=== PATIENT | male | born 1945 | race Caucasian/White ===

== ENCOUNTER → 2018-12-25 | Outpatient (CLI) | payer MEDICARE, OTHER | LOC: M.MRI 16:02 | DX: S83.231A Complex tear of medial meniscus, current injury, right knee, initial encounter (principal); S83.271A Complex tear of lateral meniscus, current injury, right knee, initial encounter; M17.11 Unilateral primary osteoarthritis, right knee; M71.21 Synovial cyst of popliteal space [Baker], right knee; M25.461 Effusion, right knee; X58.XXXA Exposure to other specified factors, initial encounter; Y93.89 Activity, other specified; Y92.89 Other specified places as the place of occurrence of the external cause; Y99.8 Other external cause status ==

== ENCOUNTER 2019-02-03 07:38 | Inpatient (IN) | payer MEDICARE, OTHER ==
[2019-01-22 09:16] LABS: URINE BILIRUBIN NEGATIVE (Negative); URINE BLOOD NEGATIVE (Negative); URINE CLARITY CLEAR; URINE COLOR YELLOW; URINE GLUCOSE-RANDOM NEGATIVE (Negative); URINE KETONES NEGATIVE (Negative); URINE LEUKOCYTES-REFLEX NEGATIVE (Negative); URINE NITRITE-REFLEX NEGATIVE (Negative); URINE PROTEIN NEGATIVE (Negative); URINE SPECIFIC GRAVITY >= 1.030 (1.005-1.030); URINE UROBILINOGEN 0.2 E.U./dl (0.2-1.0)
[2019-01-22 09:34] LABS: HEMATOCRIT 48.2 % (42.0-52.0); HEMOGLOBIN 15.9 gm/dL (14.0-18.0); MCH 30.7 pg (26.0-34.0); MCHC 33.1 g/dL (28.0-37.0); MCV 92.9 fL (80.0-100.0); MPV 7.7 fl. (7.2-11.1); RBC 5.19 mil/uL (4.50-6.00); WBC 5.7 thou/uL (4.0-11.0)
[2019-01-22 09:49] LABS: CALCIUM 8.9 mg/dL (8.5-10.1); CREATININE 0.9 mg/dL (0.6-1.3); TOTAL BILIRUBIN 0.5 mg/dL (<0.1-1.0); TOTAL PROTEIN 7.4 g/dL (6.4-8.2)
--- NOTE | 2019-01-22 15:07 | EKG ---
[place] [address] ELECTROCARDIOGRAM REPORT Name: GARDENIA BURTON Room: PRE IN ..#: [id number] Admission: Attend Phys: Paulo Waters Discharge: Date of : 49 Report #: [id number] THIS REPORT FOR: //name// [facility] Test Date: 2019-01-22 Test Time: 09:11:08 Pat Name: GARDENIA BURTON Department: Room: Gender: M [employer] Supervisor: : 1945 Requested By: Julio Mora Order Number: [id number] Reading MD: Rush Arzate Measurements Intervals [place] Rate: 56 P: 52 ME: 197 QRS: 101 QRSD: 102 T: 36 QT: 424 QTc: 410 Interpretive Statements Sinus rhythm Right axis deviation No previous ECG available for comparison Electronically Signed On 01-22-2019 15:07:47 CDT by Rush Arzate [email or web address] <ELECTRONICALLY SIGNED> By: Rush Arzate MD, [facility] 01/22/19 1507 [id number] 0911 Rush Arzate MD, FACC /EPI
[~2019-02-03] VITALS: Ht 182.9 cm; Wt 99.8 kg
--- NOTE | ~2019-02-03 | OP ---
[facility] [address] [place] [address] OPERATIVE REPORT Name: MICHEALGARDENIA KELLOGG Room: 115- ADM IN M.R.#: [id number] Admission: 02/03/19 Attend Phys: Paulo Waters Discharge: Date of : 49 Report #: [id number] THIS REPORT FOR: //name// CC: Marci Bryant DATE OF SERVICE: 02/03/2019 PREOPERATIVE DIAGNOSIS: Right knee osteoarthritis. POSTOPERATIVE DIAGNOSIS: Right knee osteoarthritis. PROCEDURE: Right total knee arthroplasty. ANESTHESIA: General endotracheal. ESTIMATED BLOOD LOSS: 50 mL. SURGEON: Julio Mora II, DO. [employer]: NIKI Sumner. ANTIBIOTICS: Ancef preoperatively. DRAINS: Medium Hemovac. COMPLICATIONS: None. CONDITION: The patient is stable to recovery room. IMPLANTS: Listed in the operative record and progress note. BRIEF HISTORY: The patient was seen in the preoperative area. Preoperative H and P was performed. Site was marked, questions were answered. Risks and benefits were discussed with the patient in detail about surgery. The patient wished to proceed, assuming all risks. DESCRIPTION OF PROCEDURE: The patient was taken to the operative suite and placed supine on the operating table and given appropriate anesthesia. Well-padded tourniquet was applied to the upper thigh, was inflated to 300 mmHg after gravity exsanguination for the duration of procedure. The operative knee was sterilely prepped and draped. Surgery began with a midline incision. This was carried down to subcutaneous tissues. A medial parapatellar arthrotomy was performed and carried down to bone. The patella was then everted and excess soft tissue removed around the femur. The femoral cutting block was then [facility] [address] [place] [address] OPERATIVE REPORT Name: GARDENIA BURTON Room: [address] M.R.#: [id number] Admission: 02/03/19 Attend Phys: Paulo Waters Discharge: Date of : 49 Report #: [id number] applied, checked with drop neha for rotational alignment, pinned in appropriate position, and appropriate cuts were made. A 4-in-1 cutting block was then applied, checked for rotational alignment, pinned in appropriate position and appropriate cuts were made. The tibia was then exposed. Excess meniscus was removed. Retractor was placed along the collateral ligaments. The tibial cutting block was applied, pinned in appropriate position and checked with a drop neha for rotational alignment and slope, and appropriate cut was made. The tibial bone was removed. The tibial base plate was then applied, checked for rotational alignment with the drop neha and pinned in appropriate position. Femur was then applied. Box cut was reamed. This was then trialed with appropriate spacer, which showed excellent fit and fill and excellent stability of the knee through all range of motion. The patella was then reamed in appropriate fashion and sized to appropriate size. Three peg holes were drilled and the knee was then trialed and showed excellent flexion and extension, excellent tracking of the patella within the groove. These trials were removed. The tibia was punched in appropriate fashion. Bone ends were cleaned with Pulsavac irrigation and cement was mixed and applied to final implants. These were then malleted in position and held the knee in extension and compressed to allow the cement to cure. After it cured, excess was removed utilizing [place] and osteotome. The wound was then copiously irrigated and the final spacer was then malleted into position. The tourniquet was deflated. Hemostasis was obtained with electrocautery. Pain cocktail was injected. PRP gel spread in the internal aspects of the knee. Medium Hemovac drain was applied. Capsule was closed with #2 FiberWire and 1-0 Vicryl in [id number] fashion. Skin was closed with 2-0 Vicryl and running 3-0 Monocryl. Dermabond and sterile dressing applied. Scott wrap and PolarCare applied. The patient transported to recovery room in stable condition. Counts were correct throughout the procedure. By: [id number] guadalupe Mora II, DO /nt
[~2019-02-03 07:38] MED LIST: EFFEXOR XR75 MG PO
[2019-02-03 08:30] VITALS: BP 136/76
[2019-02-03 11:30] VITALS: BP 135/72
--- NOTE | 2019-02-03 12:35 | NUR ---
PT ARRIVED ON UNIT @ 1125. ALERT AND ORIENTED X 4. ORIENTED TO ROOM. NICHOLAS WRAP DRESSING RIGHT KNEE-C/D/I. POLAR PACK IN PLACE. HEMOVAC DRAIN RIGHT KNEE. OXYGEN @ 2 L/NC. IVF INFUSING @ 75 MLS/HR. THIGH HIGH TEDS ON LEG LEG. SCDS- FOOT SLEEVES BILAT. CALL LIGHT WITHIN REACH.
[2019-02-03 16:00] VITALS: BP 119/77
--- NOTE | 2019-02-03 17:09 | NUR ---
RECIEVED O.T. ORDER. WILL DEFER TO P.T. AT THIS TIME. PLEASE ORDER FURTHER O.T. SERVICES IF NEEDED.
--- NOTE | 2019-02-03 19:01 | NUR ---
PT ALERT AND ORIENTED X 4. RECEIVED OXYCODONE FOR PAIN CONTROL. IVF INFUSING @ 75 MLS/HR. DENIES NAUSEA. OXYGEN ON @ 2 L/NC. NICHOLAS WRAP ON RIGHT KNEE-C/D/I. POLAR PACK IN USE. THIGH HIGH VERONA HOSE ON LEFT LEG. HEMOVAC DRAIN IN PLACE. SCDS BILAT FOOT IN USE. HOURLY ROUNDS MAINTAINED. CALL LIGHT WITHIN REACH.
[2019-02-04 00:01] VITALS: BP 124/62
[2019-02-04 04:09] VITALS: BP 115/68
[2019-02-04 05:31] LABS: HEMATOCRIT 39.7 % (42.0-52.0)
--- NOTE | 2019-02-04 07:28 | NUR ---
PATIENT HAS SLEPT WELL THROUGHOUT THE NIGHT. VSS ON RA. PAIN WELL CONTROLLED WITH ORAL PAIN MEDICATION AND CHARTED. DRESSING TO RIGHT KNEE IS C/D/I, VERONA HOSE, SCD'S AND POLAR CARE IN PLACE. HEMOVAC IN PLACE WITH MODERATE SANGUINEOUS DRAINAGE. PATIENT [place] WITH [place]IST X 1 [place] [facility] [place] IN LEFT HAND-1/2 NS @ 75ML/HR. PATIENT USING BEDSIDE URINAL DURING THE NIGHT. PATIENT INSTRUCTED TO USE CALL LIGHT WHEN NEEDING ASSISTANCE. HOURLY ROUNDS MADE. WILL CONTINUE WITH PLAN OF CARE AND NURSING TO MONITOR.
[2019-02-04 08:00] VITALS: BP 125/71
[2019-02-04] MEDS ORDERED: XARELTO10 MG PO (11:11)
[2019-02-04] MEDS ORDERED: PERCOCET PO (11:13)
[2019-02-04 11:15] VITALS: BP 115/68
[2019-02-04 11:48] VITALS: BP 120/58
--- NOTE | 2019-02-04 12:37 | NUR ---
PT.LIVES WITH HIS . IS NORMALLY INDEPENDENT. NO USE OF DME BUT HAS A FRONT WHEEL WALKER FROM HOME. CM CALLED IN PRESCRIPTION WRITTEN TO [facility] FOR XARELTO. COPAY IS $179. ASKED PHARMACY TO RUN XARELTO COUPON. THEY WILL SEE IF IT WILL GO THROUGH AND CALL CM BACK. PLANS TO DO OUTPT.THERAPY IN [place].
[2019-02-04] MEDS ORDERED: ASPIRIN325 PO (14:10)
--- NOTE | 2019-02-04 14:24 | NUR ---
PT DISCHARGED AT 1422 BY WHEELCHAIR WITH NURSING STAFF AND . HEMOVAC AND IV REMOVED. DRESSING WAS CLEAN, DRY AND INTACT. PAPER SCRIPTS GIVEN, AND INFO SHEETS. DISCHARGE PAPERWORK REVIEWED AND SIGNED. PERSONAL ITEMS SENT WITH PT.
== END 2019-02-04 14:22 | disposition home health service (06) | DRG 470 ==
LOC: M.ORTHSURG 07:38 → M.TBA 07:38 → M.PRE 11:12 → M.ORTHSURG 11:28 → M.PRE 13:30 → M.ORTHSURG 02-04 14:22
PROVIDERS: Orthopaedic Surgery; ADMIT Internal Medicine
PROC: 0SRC0J9 Replacement of Right Knee Joint with Synthetic Substitute, Cemented, Open Approach (ICD-10-PCS; principal; 2019-02-03)
DX: M17.11 Unilateral primary osteoarthritis, right knee (principal); F32.9 Major depressive disorder, single episode, unspecified; Z85.46 Personal history of malignant neoplasm of prostate; Z82.49 Family history of ischemic heart disease and other diseases of the circulatory system; Z81.8 Family history of other mental and behavioral disorders; Z47.1 Aftercare following joint replacement surgery; Z79.899 Other long term (current) drug therapy

== ENCOUNTER → 2020-09-21 | Outpatient (CLI) | payer MEDICARE, OTHER ==
[~2020-09-21] MED LIST changes: +ASPIRIN325 PO; +PERCOCET PO; +XARELTO10 MG PO
== END ==
LOC: M.MRI 08:17
PROVIDERS: ATTEND Family Medicine
DX: M47.26 Other spondylosis with radiculopathy, lumbar region (principal); M48.061 Spinal stenosis, lumbar region without neurogenic claudication; M54.5 Low back pain